=== PATIENT | female | born 2000 | race Native Hawaiian/Other Pacific Islander ===

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

== ENCOUNTER 2021-01-16 09:13 | Outpatient (CLI) | payer OTHER | END 2021-01-16 21:31 | disposition home or self-care (01) | LOC: RAD 09:13 | PROVIDERS: ATTEND Nurse Practitioner Family | DX: M79.672 Pain in left foot (principal); S99.922A Unspecified injury of left foot, initial encounter; M25.572 Pain in left ankle and joints of left foot; S99.912A Unspecified injury of left ankle, initial encounter ==

== ENCOUNTER → 2021-03-13 | Outpatient (CLI) | payer OTHER | LOC: LAB 20:34 | PROVIDERS: ATTEND Nurse Practitioner Family | DX: R10.13 Epigastric pain (principal); R14.0 Abdominal distension (gaseous); Z86.19 Personal history of other infectious and parasitic diseases | CPT/HCPCS: 87015; 87045; 87328; 87329; 87338; 87899 ==

== ENCOUNTER 2021-05-24 08:31 | Outpatient (CLI) | payer OTHER | END 2021-05-24 19:04 | disposition home or self-care (01) | LOC: LABW 08:31 | PROVIDERS: ATTEND Nurse Practitioner Family | DX: J02.8 Acute pharyngitis due to other specified organisms (principal) | CPT/HCPCS: 87651 ==

== ENCOUNTER 2021-05-27 14:04 | Outpatient (CLI) | payer OTHER | END 2021-05-27 22:03 | disposition home or self-care (01) | LOC: LAB 14:04 | PROVIDERS: ATTEND Nurse Practitioner Family | DX: Z01.818 Encounter for other preprocedural examination (principal) | CPT/HCPCS: 87635; G2023; U0003 ==

== ENCOUNTER 2021-07-01 12:34 | Outpatient (CLI) | payer OTHER | END 2021-07-01 20:07 | disposition home or self-care (01) | LOC: LAB 12:34 | PROVIDERS: ATTEND Nurse Practitioner Family | DX: Z01.818 Encounter for other preprocedural examination (principal); Z11.52 Encounter for screening for COVID-19 | CPT/HCPCS: 87635; G2023; U0003 ==

== ENCOUNTER 2021-08-20 09:09 | Outpatient (CLI) | payer OTHER | END 2021-08-20 20:21 | disposition home or self-care (01) | LOC: LAB 09:09 | PROVIDERS: ATTEND Nurse Practitioner Family | DX: Z20.822 Contact with and (suspected) exposure to COVID-19 (principal); J02.9 Acute pharyngitis, unspecified | CPT/HCPCS: 87635; 87651; G2023; U0003 ==

== ENCOUNTER 2021-09-02 12:21 | Outpatient (CLI) | payer OTHER | END 2021-09-02 21:02 | disposition home or self-care (01) | LOC: LAB 12:21 | PROVIDERS: ATTEND Nurse Practitioner Family | DX: Z20.822 Contact with and (suspected) exposure to COVID-19 (principal) | CPT/HCPCS: 87635; G2023; U0003 ==

== ENCOUNTER 2021-10-09 08:23 | Outpatient (CLI) | payer OTHER | END 2021-10-09 19:56 | disposition home or self-care (01) | LOC: LAB 08:23 | PROVIDERS: ATTEND Nurse Practitioner Family | DX: Z01.818 Encounter for other preprocedural examination (principal) | CPT/HCPCS: 87635; U0003 ==

== ENCOUNTER 2021-10-25 10:19 | Outpatient (CLI) | payer OTHER | END 2021-10-25 20:30 | disposition home or self-care (01) | LOC: LAB 10:19 | PROVIDERS: ATTEND Nurse Practitioner Family | DX: Z20.822 Contact with and (suspected) exposure to COVID-19 (principal); R05.8 Other specified cough | CPT/HCPCS: 87635; G2023; U0003 ==

== ENCOUNTER 2022-05-06 05:09 | Emergency (ER) | payer OTHER ==
[~2022-05-06] VITALS: Ht 160 cm; Wt 72.6 kg
[2022-05-06 07:24] VITALS: BP 102/54; TEMP 98.3
== END 2022-05-06 07:37 | disposition home or self-care (01) ==
LOC: ED 05:09
DX: J20.9 Acute bronchitis, unspecified (principal); Z20.822 Contact with and (suspected) exposure to COVID-19; F17.210 Nicotine dependence, cigarettes, uncomplicated
CPT/HCPCS: 87502; 87635; 87651; 99283; U0003

== ENCOUNTER 2023-11-18 20:26 | Emergency (ER) | payer OTHER ==
[~2023-11-18] VITALS: Ht 160 cm; Wt 83.9 kg
[2023-11-18 20:30] VITALS: TEMP 97.7
[2023-11-18] MEDS ORDERED: IPRATROPIUM-ALBUTEROL 1 SOL SOL INH ONE (21:19)
[2023-11-18] MEDS ORDERED: METHYLPREDNISOLONE SOD SUCC 125 MG ML IM ONE (21:21)
[2023-11-18] MEDS ORDERED: METHYLPREDNISOLONE SOD SUCC 125 MG IV ONE (21:25)
[2023-11-18 22:40] VITALS: BP 131/77
== END 2023-11-18 22:40 | disposition home or self-care (01) ==
LOC: ED 20:26
DX: R07.89 Other chest pain (principal); J45.909 Unspecified asthma, uncomplicated
CPT/HCPCS: 93005; 94664; 96372; 99282; 99283; J2930